=== PATIENT | female | born 1980 | race Caucasian/White ===

== ENCOUNTER 2018-02-18 22:07 | Emergency (ER) | payer OTHER ==
[~2018-02-18] VITALS: Ht 157.5 cm; Wt 81.6 kg
[2018-02-18 23:44] LABS: PLATELET COUNT 249 x10^3mcL (130-400)
[2018-02-18 23:45] LABS: CARBON DIOXIDE 27.8 mmol/L (21-32); CHLORIDE SERUM 100 mmol/L (98-107); GFR1 > 60 mL/min; GLUCOSE SERUM 86 mg/dL (74-106); POTASSIUM SERUM 3.5 mmol/L (3.5-5.1); SODIUM SERUM 140 mmol/L (136-145)
[2018-02-18 23:55] LABS: RED CELL DISTRIBUTION WIDTH 17.6 % (11.5-14.5)
[2018-02-18 23:58] LABS: ALBUMIN 3.7 g/dL (3.4-5.0); ALKALINE PHOSPHATASE 77 U/L (46-116); ALT/SGPT 23 U/L (14-59); AST/SGOT 16 U/L (15-37); BILIRUBIN TOTAL 0.1 mg/dL (0.20-1.00); FREE T4 0.87 ng/dL (0.76-1.46)
[2018-02-19] LABS: TOTAL PROTEIN, SERUM 9.2 g/dL (6.4-8.2)
[2018-02-19 03:42] VITALS: BP 128/62
== END 2018-02-19 03:42 | disposition home or self-care (01) ==
LOC: ED 22:07
PROVIDERS: Emergency Medicine
DX: F10.129 Alcohol abuse with intoxication, unspecified (principal); R44.3 Hallucinations, unspecified; F32.9 Major depressive disorder, single episode, unspecified; E03.9 Hypothyroidism, unspecified
CPT/HCPCS: 36415; 84439; G0480

== ENCOUNTER 2018-04-14 12:02 | Emergency (ER) | payer OTHER ==
[~2018-04-14] VITALS: Ht 157.5 cm; Wt 90.7 kg
[2018-04-14 12:09] VITALS: Ht 157.5 cm; Wt 90.7 kg
[2018-04-14 12:40] LABS: BASOPHIL % 0.5 % (0-2); PLATELET COUNT 232 x10^3mcL (130-400)
[2018-04-14 12:41] LABS: RED CELL DISTRIBUTION WIDTH 15.8 % (11.5-14.5)
[2018-04-14 12:47] LABS: CALCIUM 9.2 mg/dL (8.5-10.1); CARBON DIOXIDE 33.3 mmol/L (21-32); CHLORIDE SERUM 101 mmol/L (98-107); CREATININE SERUM 0.9 mg/dL (0.6-1.0); GFR1 > 60 mL/min; GLUCOSE SERUM 100 mg/dL (74-106); POTASSIUM SERUM 4.2 mmol/L (3.5-5.1); SODIUM SERUM 140 mmol/L (136-145)
[2018-04-14 12:51] LABS: ALBUMIN 3.6 g/dL (3.4-5.0); ALKALINE PHOSPHATASE 95 U/L (46-116); ALT/SGPT 27 U/L (14-59); AST/SGOT 20 U/L (15-37); BILIRUBIN TOTAL 0.19 mg/dL (0.20-1.00)
[2018-04-14 12:54] LABS: TOTAL PROTEIN, SERUM 8.3 g/dL (6.4-8.2)
[2018-04-14 14:18] VITALS: BP 100/63
== END 2018-04-14 14:18 ==
LOC: ED 12:02
PROVIDERS: Emergency Medicine
DX: R07.89 Other chest pain (principal); F41.9 Anxiety disorder, unspecified; J06.9 Acute upper respiratory infection, unspecified; F32.9 Major depressive disorder, single episode, unspecified; E03.9 Hypothyroidism, unspecified; F20.9 Schizophrenia, unspecified; Z98.890 Other specified postprocedural states
CPT/HCPCS: 36415; Q0092